=== PATIENT | male | born 1955 | race Caucasian/White ===

== ENCOUNTER 2019-02-09 13:41 | Inpatient (IN) | payer OTHER ==
[~2019-02-09] VITALS: Ht 170.2 cm; Wt 90.7 kg
[2019-02-09 14:16] VITALS: BP 138/85; BMI 31.4
[2019-02-09] MEDS ORDERED: PROTONIX40 MG PO (14:18)
[2019-02-09] MEDS ORDERED: LOMOTIL 2.5-0.1 EAC1 PO (14:19)
[2019-02-09] MEDS ORDERED: TRAZODONE HCL150 MG PO (14:19)
[2019-02-09 14:56] LABS: BASOPHILS 0.2 % (0-2); EOSINOPHILS 1.6 % (0-7); HEMATOCRIT 49.9 % (42.0-54.0); HEMOGLOBIN 16.9 g/dL (13.5-17.5); IMMATURE GRANULOCYTES 0.4 % (0-5); LYMPHOCYTES 10.3 % (15-50); MCHC 33.9 g/dL (31.0-37.0); MCV 94.5 fL (80.0-100.0); MEAN PLATELET VOLUME 9.5 fL (7.4-10.4); MONOCYTES 6.8 % (2-11); NEUTROPHILS 80.7 % (40-80); PLATELET COUNT 278 10x3/uL (130-400); RBC 5.28 10x6/uL (4.20-6.10); RDW 14.8 % (11.5-14.5); WBC 13.9 10x3/uL (4.8-10.8)
[2019-02-09 15:01] LABS: CALCIUM 8.9 mg/dL (8.5-10.1); CARBON DIOXIDE 26.1 mmol/L (21.0-32.0); CREATININE - SERUM 1.2 mg/dL (0.6-1.3); POTASSIUM - SERUM 4.1 mmol/L (3.5-5.1)
[2019-02-09 15:07] LABS: ALBUMIN 3.7 g/dL (3.4-5.0); BILIRUBIN - TOTAL 2.19 mg/dL (0.2-1.3); PROTEIN - SERUM 6.8 g/dL (6.4-8.2)
--- NOTE | 2019-02-09 19:21 | NUR ---
IN BED WITH TV ON, AT BEDSIDE. ABLE TO VOICE ALL NEEDS. REQUESTS SLEEP MEDICATION FOR HS, THIS NURSE REVIEWED MAR AND NOTED HE HAS SCHEDULED HOME MEDS, HE IS SATISFIED. ALSO REQUESTS COFFEE, GRANTED. WILL NOTE ANY CHANGE.
[2019-02-09 22:13] VITALS: BP 119/71
[2019-02-10 01:21] VITALS: BP 93/62
--- NOTE | 2019-02-10 02:23 | NUR ---
I have reviewed this patient and I concur with the Shift Assessment completed by the Licensed Practical Nurse today this shift.
[2019-02-10 05:34] VITALS: BP 110/70
--- NOTE | 2019-02-10 05:57 | NUR ---
RESTED WELL THIS SHIFT. DENIES ANY FURTHER PAIN AT THIS TIME. WAS UNCOMFORTABLE AT 0222 BUT PRN TYLENOL WAS EFFECTIVE. HAS GENERAL DISCOMFORT DUE TO COUGHING AND NOT FEELING WELL, BUT IS VERY WELCOMING TO INTERVENTIONS. HOT BROTH WAS OFFERED AND RECVD WELL FOR THROAT DISCOMFORT. WILL NOTE ANY CHANGE.
[2019-02-10 07:00] LABS: BASOPHILS 0.2 % (0-2); EOSINOPHILS 2.5 % (0-7); HEMATOCRIT 44.1 % (42.0-54.0); HEMOGLOBIN 14.8 g/dL (13.5-17.5); IMMATURE GRANULOCYTES 0.2 % (0-5); LYMPHOCYTES 11.8 % (15-50); MCH 31.8 pg (26.0-34.0); MCHC 33.6 g/dL (31.0-37.0); MCV 94.6 fL (80.0-100.0); MEAN PLATELET VOLUME 9.7 fL (7.4-10.4); MONOCYTES 10.4 % (2-11); NEUTROPHILS 74.9 % (40-80); PLATELET COUNT 297 10x3/uL (130-400); RBC 4.66 10x6/uL (4.20-6.10); RDW 14.8 % (11.5-14.5)
[2019-02-10 07:15] LABS: WBC 10.3 10x3/uL (4.8-10.8)
[2019-02-10 07:23] LABS: ALBUMIN 2.8 g/dL (3.4-5.0); ANION GAP 11.1 mmol/L (8-16); BILIRUBIN - TOTAL 1.45 mg/dL (0.2-1.3); CALCIUM 8.2 mg/dL (8.5-10.1); CARBON DIOXIDE 26.6 mmol/L (21.0-32.0); CREATININE - SERUM 1.3 mg/dL (0.6-1.3); POTASSIUM - SERUM 3.7 mmol/L (3.5-5.1); PROTEIN - SERUM 6.2 g/dL (6.4-8.2)
--- NOTE | 2019-02-10 08:15 | NUR ---
PATIENT LAYING IN BED AWAKE. SAYS "I FEEL WORSE TODAY THEN YESTERDAY." TOLD HIM WE WOULD TRY TO GET HIM FEELING BETTER. SAID HE MIGHT BE COUGHING MORE SINCE HIS ROOM WAS WARM. TURNED DOWN HEAT A "FEW DEGREES" CL IN REACH. WCDAKSHA
[2019-02-10 08:42] VITALS: BP 121/71
[2019-02-10 09:40] VITALS: Ht 170.2 cm; Wt 90.7 kg
[2019-02-10 12:25] VITALS: BP 114/65
--- NOTE | 2019-02-10 15:52 | MORECARE ---
CASE MANAGEMENT DISCHARGE SUMMARY PATIENT: TAMANNA CHIU UNIT: [id number] ADM DATE: 02/09/19 AGE: 63 : 59 SEX: M ROOM/BED: D.2206 AUTHOR: RANJEETDOC PHYSICIAN: REFERRING PHYSICIAN: VAIBHAV LEO DO DATE OF SERVICE: 02/10/19 Discharge Plan Patient Name: TAMANNA CHIU Facility: [facility]:[place] : 1955 Planned Disposition: Home or Self Care Anticipated Discharge Date: Discharge Date: Expected LOS: Initial Reviewer: [email or web address] Initial Review Date: 02/09/2019 Generated: 02/10/19 4:52 pm Comments DCP- Discharge Planning Updated by [email or web address]: Laurence Grande on 02/10/19 2:[address] Patient Name: TAMANNA CHIU Admission Status: Elective Accout number: [id number] Admission Date: 02-09-2019 : 1955 Admission Diagnosis: Attending: VAIBHAV LEO Current LOS: 1 Anticipated DC Date: Planned Disposition: Home or Self Care Primary Insurance: [facility] Discharge Planning Comments: CM met with patient to complete initial dc planning assessment. CM educated patient on the CM role and verbal consent given by patient to complete assessment. Patient lives at home with his where he is independent with his care. At discharge patient plans to return home and feels this is a safe discharge. Either his will drive him home or he will drive himself. His truck is in the parking lot. CM discussed availability of home health, rehab services, and medical equipment. Patient denied known discharge needs at this time. He does have a nebulizer at home that he uses at times. CM will continue to follow and will assist as needed with dc plans/needs. Tetryl Dissolver Operator: Laurence Grande DCPIA - Discharge Planning Initial Assessment Updated by [email or web address]: Laurence Grande on 02/10/19 3:48 pm * Is the patient Alert and Oriented? Yes * How many steps to enter\exit or inside your home? * PCP FELIPA * Pharmacy [facility] * Preadmission Environment Home with Family * ADLs Independent * Equipment Nebulizer * List name and contact numbers for known caregivers / representatives who currently or will assist patient after discharge: DEBORAH () [phone] * Verbal permission to speak to the caregivers and representatives has been obtained from the patient. N/A * Community resources currently utilized None * Additional services required to return to the preadmission environment? No * Can the patient safely return to the preadmission environment? Yes * Has this patient been hospitalized within the prior 30 days at any hospital? Yes Patient Name: TAMANNA CHIU Page [phone] at 1552 All edits/amendments must be made on the electronic document DICTATION DATE: 02/10/191551 PROJECTOR OPERATOR: MELLISSA 02/10/191551 RPT#: [id number] DC DATE: STATUS: ADM IN [facility] [address] [place] [address] END OF REPORT
[2019-02-10 16:58] VITALS: BP 139/82
[2019-02-10 21:26] VITALS: BP 133/77
[2019-02-11 02:26] VITALS: BP 108/57
[2019-02-11 05:51] VITALS: BP 110/60
[2019-02-11 06:53] LABS: BASOPHILS 0.2 % (0-2); EOSINOPHILS 3.7 % (0-7); HEMATOCRIT 42.6 % (42.0-54.0); HEMOGLOBIN 14.2 g/dL (13.5-17.5); IMMATURE GRANULOCYTES 0.6 % (0-5); LYMPHOCYTES 15.7 % (15-50); MCH 31.4 pg (26.0-34.0); MCHC 33.3 g/dL (31.0-37.0); MCV 94.2 fL (80.0-100.0); MEAN PLATELET VOLUME 9.4 fL (7.4-10.4); MONOCYTES 12.4 % (2-11); NEUTROPHILS 67.4 % (40-80); PLATELET COUNT 286 10x3/uL (130-400); RBC 4.52 10x6/uL (4.20-6.10); RDW 14.9 % (11.5-14.5); WBC 8.3 10x3/uL (4.8-10.8)
--- NOTE | 2019-02-11 07:21 | NUR ---
I have reviewed this patient and I concur with the Shift Assessment completed by the Licensed Practical Nurse today this shift.
[2019-02-11 07:36] LABS: ALBUMIN 2.8 g/dL (3.4-5.0); ANION GAP 14.4 mmol/L (8-16); BILIRUBIN - TOTAL 0.86 mg/dL (0.2-1.3); CALCIUM 8.3 mg/dL (8.5-10.1); CARBON DIOXIDE 22.6 mmol/L (21.0-32.0); CREATININE - SERUM 1.2 mg/dL (0.6-1.3); PROTEIN - SERUM 5.7 g/dL (6.4-8.2)
--- NOTE | 2019-02-11 08:00 | NUR ---
REQUESTING COUGH SYRUP AND TYLENOL. CL IN REACH. NO FURTHER NEEDS AT THIS TIME. WCTM
[2019-02-11 08:45] VITALS: BP 131/74
[2019-02-11 12:16] VITALS: BP 128/72
[2019-02-11 16:44] VITALS: BP 138/77
[2019-02-11 19:00] VITALS: BP 140/76
[2019-02-12] VITALS: BP 137/68
--- NOTE | 2019-02-12 01:41 | NUR ---
REC'D IN BED AT WALKING ROUNDS CHGE OF SHIFT.STATES RAN LITTLE FEVER AGAIN TODAY.WITH SOME SOB STILL ON MINIMAL ACTIVITY.NO RESP. DISTRESS OBSERVED. WILL CONTINUE TO MONITOR FOR ANY CHGES.IN STATUS AND FOLLOW CURRENT PLAN OF CARE.
[2019-02-12 05:00] VITALS: BP 107/72
[2019-02-12 05:58] LABS: BASOPHILS 0.4 % (0-2); EOSINOPHILS 4.8 % (0-7); HEMATOCRIT 42.6 % (42.0-54.0); HEMOGLOBIN 14.2 g/dL (13.5-17.5); IMMATURE GRANULOCYTES 0.6 % (0-5); LYMPHOCYTES 15.8 % (15-50); MCH 31.6 pg (26.0-34.0); MCHC 33.3 g/dL (31.0-37.0); MCV 94.9 fL (80.0-100.0); MEAN PLATELET VOLUME 9.3 fL (7.4-10.4); MONOCYTES 14.7 % (2-11); NEUTROPHILS 63.7 % (40-80); PLATELET COUNT 336 10x3/uL (130-400); RBC 4.49 10x6/uL (4.20-6.10); WBC 7.3 10x3/uL (4.8-10.8)
[2019-02-12 06:32] LABS: ALBUMIN 2.7 g/dL (3.4-5.0); ANION GAP 14.1 mmol/L (8-16); BILIRUBIN - TOTAL 1.14 mg/dL (0.2-1.3); CALCIUM 8.5 mg/dL (8.5-10.1); CARBON DIOXIDE 25.5 mmol/L (21.0-32.0); CREATININE - SERUM 1.2 mg/dL (0.6-1.3); POTASSIUM - SERUM 3.6 mmol/L (3.5-5.1); PROTEIN - SERUM 6.3 g/dL (6.4-8.2)
--- NOTE | 2019-02-12 07:35 | NUR ---
I have reviewed this patient and I concur with the Shift Assessment completed by the Licensed Practical Nurse today this shift.
--- NOTE | 2019-02-12 08:04 | NUR ---
AWAKE AND ALERT. ORIENTED X3. C/O SEVERE HEADACHE AT THIS TIME. REQUESTED AND GIVEN 650 MG TYLENOL PO FOR SAME. WILL MONITOR. LUNGS ARE DIMINISHED IN BILATERAL LOWER LOBES, OCCASSIONAL PRODUCTIVE COUGH NOTED. SKIN IS INTACT WITHOUT REDNESS. IV TO LEFT AC PATENT WITHOUT REDNESS AT INSERTION SITE. SCD'S IN PLACE. DENIES FURTHER NEEDS.
[2019-02-12 08:56] VITALS: BP 143/77
--- NOTE | 2019-02-12 09:00 | NUR ---
ATE MOST OF BREAKFAST. REPORTS HEADACHE IMPROVED. DENIES NEEDS.
--- NOTE | 2019-02-12 12:19 | NUR ---
RESTING QUIETLY IN BED. NO C/O HEADACHE. DENIES NEEDS.
[2019-02-12 12:49] VITALS: BP 120/79
--- NOTE | 2019-02-12 14:00 | NUR ---
ATE MOST OF LUNCH. UP TO SHOWER WITH SET UPASSISTANCE. RASH NOTED TO ENTIRE BACK. NO C/O ITCHING OR DISCOMFORT. WILL MONITOR.
[2019-02-12 16:17] LABS: APTT 30.2 SECONDS (22.8-39.4); INR 1.06 (0.85-1.17); PROTIME 13.3 SECONDS (11.6-15.0)
[2019-02-12 16:28] VITALS: BP 135/78
--- NOTE | 2019-02-12 17:10 | NUR ---
REQUESTED AND GIVNE COUGH SYRUP FOR C/O PAIN WITH COUGH. WILL MONITOR.
--- NOTE | 2019-02-12 18:38 | NUR ---
ATE MOST OF SUPPER. DENIES NEEDS. NO CHANGES NOTED.
[2019-02-12 19:00] VITALS: BP 138/73
[2019-02-13] VITALS (7 sets, daily range): BP systolic 115–146; BP diastolic 57–80
[2019-02-13 06:56] LABS: BASOPHILS 0.6 % (0-2); EOSINOPHILS 5.6 % (0-7); HEMATOCRIT 40.6 % (42.0-54.0); HEMOGLOBIN 13.5 g/dL (13.5-17.5); IMMATURE GRANULOCYTES 0.6 % (0-5); LYMPHOCYTES 17.7 % (15-50); MCH 31.5 pg (26.0-34.0); MCHC 33.3 g/dL (31.0-37.0); MCV 94.6 fL (80.0-100.0); MEAN PLATELET VOLUME 9.2 fL (7.4-10.4); MONOCYTES 12.8 % (2-11); NEUTROPHILS 62.7 % (40-80); PLATELET COUNT 340 10x3/uL (130-400); RBC 4.29 10x6/uL (4.20-6.10); WBC 7.1 10x3/uL (4.8-10.8)
[2019-02-13 07:22] LABS: ALBUMIN 2.6 g/dL (3.4-5.0); ANION GAP 10.9 mmol/L (8-16); BILIRUBIN - TOTAL 1.08 mg/dL (0.2-1.3); CALCIUM 8.2 mg/dL (8.5-10.1); CARBON DIOXIDE 26.1 mmol/L (21.0-32.0); CREATININE - SERUM 1.1 mg/dL (0.6-1.3); PROTEIN - SERUM 5.5 g/dL (6.4-8.2)
--- NOTE | 2019-02-13 07:55 | NUR ---
AWAKE AND ALERT. ORIENTED X3. C/O BACK ITCHING, CLEAN WITH DAMP CLOTH AND SPRAY APPLIED TO AREA. ALSO REQUESTED AND GIVEN 650 MG TYLENOL PO FOR C/O HEADACHE LEVEL 10. WILL MONITOR. LUNGS ARE DIMINISHED IN LOWER LOBES, NON PRODUCTIVE COUGH NOTED. SKIN IS INTACT WITHOUT REDNESS EXCEPT RASH TO BACK. WILL CONTINUE TO MONITOR. IV TO RIGHT FOREARM IS PATENT WITHOUT REDNESS AT INSERTION SITE. DENIES NEEDS. SCD'S IN PLACE.
--- NOTE | 2019-02-13 10:40 | NUR ---
GIVEN PRE PROCEDURE MEDS. OFF UNIT VIA BED FOR BRONCH. FAMILY HERE WITH PATIENT.
--- NOTE | 2019-02-13 12:12 | NUR ---
RETURNED FROM [facility]. FAMILY AT [facility]. S.
--- NOTE | 2019-02-13 19:27 | NUR ---
ATE MOST OF SUPPER. DENIES NEEDS. NO CHANGES NOTED.
[2019-02-14] VITALS: BP 134/75
[2019-02-14 04:00] VITALS: BP 131/76
[2019-02-14 07:08] LABS: BASOPHILS 0.6 % (0-2); EOSINOPHILS 6.4 % (0-7); HEMATOCRIT 40.9 % (42.0-54.0); HEMOGLOBIN 13.5 g/dL (13.5-17.5); IMMATURE GRANULOCYTES 0.9 % (0-5); LYMPHOCYTES 17.5 % (15-50); MCH 31.4 pg (26.0-34.0); MCV 95.1 fL (80.0-100.0); MEAN PLATELET VOLUME 9.1 fL (7.4-10.4); MONOCYTES 11.5 % (2-11); NEUTROPHILS 63.1 % (40-80); PLATELET COUNT 339 10x3/uL (130-400); RDW 14.9 % (11.5-14.5); WBC 6.6 10x3/uL (4.8-10.8)
[2019-02-14 07:30] LABS: ALBUMIN 2.6 g/dL (3.4-5.0); ANION GAP 14.1 mmol/L (8-16); BILIRUBIN - TOTAL 0.7 mg/dL (0.2-1.3); CALCIUM 7.9 mg/dL (8.5-10.1); CREATININE - SERUM 1.2 mg/dL (0.6-1.3); POTASSIUM - SERUM 4.1 mmol/L (3.5-5.1); PROTEIN - SERUM 5.6 g/dL (6.4-8.2)
[2019-02-14 08:12] VITALS: BP 135/82
--- NOTE | 2019-02-14 08:25 | NUR ---
PATIENT IN BED AWAKE WATCHING TV. CL IN REACH. NO NEEDS AT THIS TIME. WCTM
--- NOTE | 2019-02-14 10:39 | NUR ---
IN ROOM. ASKED WHAT TIME DOCTORS USUALLY ROUND. PATIENT REQUESTED AND RECEIVED COFFEE. CL IN REACH. WCTM
--- NOTE | 2019-02-14 13:02 | NUR ---
WENT DOWN TO PHARMACY FOR FLONASE. REQUESTS LORTAB WHEN IT IS TIME. CL IN REACH. TM
[2019-02-14 13:33] VITALS: BP 137/73
[2019-02-14 14:08] LABS: ACID FAST SMEAR Negative (()); AFB SPECIMEN PROCESSING Concentration (())
--- NOTE | 2019-02-14 15:55 | NUR ---
PATIENT WALKED FOUR LAPS AROUND NURSING STATION. CL IN REACH. NO NEEDS AT THIS TIME. WCTM
--- NOTE | 2019-02-14 15:56 | NUR ---
IV TUBING CHANGED.
[2019-02-14 16:23] VITALS: BP 123/81
[2019-02-14 19:49] VITALS: BP 137/81
[2019-02-15] VITALS: BP 116/73
--- NOTE | 2019-02-15 00:55 | NUR ---
PATIENT RESTING QUIETLY, IV FLUIDS INFUSING WITHOUT DIFFICULTY, NO RESP. DISTRESS, WILL CONTINUE TO MONITOR, CALL LIGHT WITHIN REACH
[2019-02-15 04:00] VITALS: BP 127/82
[2019-02-15 06:14] LABS: BASOPHILS 0.8 % (0-2); EOSINOPHILS 7.8 % (0-7); HEMATOCRIT 44.1 % (42.0-54.0); HEMOGLOBIN 14.7 g/dL (13.5-17.5); IMMATURE GRANULOCYTES 0.8 % (0-5); LYMPHOCYTES 21.2 % (15-50); MCH 31.7 pg (26.0-34.0); MCHC 33.3 g/dL (31.0-37.0); MONOCYTES 10.4 % (2-11); PLATELET COUNT 369 10x3/uL (130-400); RBC 4.64 10x6/uL (4.20-6.10); RDW 14.8 % (11.5-14.5); WBC 5.3 10x3/uL (4.8-10.8)
[2019-02-15 06:55] LABS: ANION GAP 14.9 mmol/L (8-16); BILIRUBIN - TOTAL 0.67 mg/dL (0.2-1.3); CALCIUM 8.3 mg/dL (8.5-10.1); CARBON DIOXIDE 24.1 mmol/L (21.0-32.0); CREATININE - SERUM 1.3 mg/dL (0.6-1.3); PROTEIN - SERUM 6.2 g/dL (6.4-8.2)
[2019-02-15 08:19] VITALS: BP 120/85
--- NOTE | 2019-02-15 10:18 | NUR ---
PATIENT WALKED 4 LAPS AROUND NURSING STATION. FRESH COFFEE PROVIDED. CL IN REACH. NO FURTHER NEEDS AT THIS TIME. WCTM
[2019-02-15 12:40] VITALS: BP 151/93
[2019-02-15] MEDS ORDERED: LEVAQUIN750 MG PO (13:45)
[2019-02-15] MEDS ORDERED: DOXYCYCLINE HY100 M2 PO (13:45)
[2019-02-15] MEDS ORDERED: MUCINEX DM ER1 EAC1 PO (13:47)
[2019-02-15] MEDS ORDERED: TESSALON PERLE100 MG PO (13:47)
[2019-02-15] MEDS ORDERED: IPRAT-ALBUT 0.5-3 ML UPD (13:47)
[2019-02-15] MEDS ORDERED: Xylocaine-MPF 1% INH (13:48)
--- NOTE | 2019-02-15 14:48 | MORECARE ---
CASE MANAGEMENT DISCHARGE SUMMARY PATIENT: TAMANNA CHIU UNIT: [id number] ADM DATE: 02/09/19 AGE: 63 : 59 SEX: M ROOM/BED: D.2206 AUTHOR: MAYNOR POLLACK PHYSICIAN: REFERRING PHYSICIAN: VAIBHAV LEO DO DATE OF SERVICE: 02/15/19 Discharge Plan Patient Name: TAMANNA CHIU Facility: [facility]:[place] : 1955 Planned Disposition: Home or Self Care Anticipated Discharge Date: Discharge Date: Expected LOS: Initial Reviewer: [email or web address] Initial Review Date: 02/09/2019 Generated: 02/15/19 3:48 pm Comments DCP- Discharge Planning Updated by [email or web address]: Jennifer Gomez on 02/15/19 1:[address] Patient Name: TAMANNA CHIU Encounter No: [id number] : 1955 Primary Insurance: [facility] [employer] [facility] Anticipated DC Date: Planned Disposition: Home or Self Care External Planned Provider: : DCP follow-up note: Patient and family in agreement with discharge plan. No changes to plan. Case management will follow and assist as needed. Jennifer Gomez DCP- Discharge Planning Updated by [email or web address]: Laurence Grande on 02/10/19 3:[address] Patient Name: TAMANNA CHIU Admission Status: Elective Accout number: [id number] Admission Date: 02-09-2019 : 1955 Admission Diagnosis: Attending: VAIBHAV LEO Current LOS: 1 Anticipated DC Date: Planned Disposition: Home or Self Care Primary Insurance: [facility] [employer] [facility] Discharge Planning Comments: CM met with patient to complete initial dc planning assessment. CM educated patient on the CM role and verbal consent given by patient to complete assessment. Patient lives at home with his where he is independent with his care. At discharge patient plans to return home and feels this is a safe discharge. Either his will drive him home or he will drive himself. His truck is in the parking lot. CM discussed availability of home health, rehab services, and medical equipment. Patient denied known discharge needs at this time. He does have a nebulizer at home that he uses at times. CM will continue to follow and will assist as needed with dc plans/needs. Cigar Maker: Laurence Grande DCPIA - Discharge Planning Initial Assessment Updated by [email or web address]: Laurence Grande on 02/10/19 3:48 pm * Is the patient Alert and Oriented? Yes * How many steps to enter\exit or inside your home? * PCP FELIPA * Pharmacy [facility] * Preadmission Environment Home with Family * ADLs Independent * Equipment Nebulizer * List name and contact numbers for known caregivers / representatives who currently or will assist patient after discharge: DEBORAH () [phone] * Verbal permission to speak to the caregivers and representatives has been obtained from the patient. N/A * Community resources currently utilized None * Additional services required to return to the preadmission environment? No * Can the patient safely return to the preadmission environment? Yes * Has this patient been hospitalized within the prior 30 days at any hospital? Yes Last DP export: 02/10/19 3:52 Patient Name: TAMANNA CHIU Page [id number] at 1448 All edits/amendments must be made on the electronic document DICTATION DATE: 02/15/191447 RESEARCH ASSISTANT PROFESSOR: MELLISSA 02/15/198 RPT#: [id number] DC DATE: STATUS: ADM IN [facility] [address] [place] [address] END OF REPORT
--- NOTE | 2019-02-15 15:49 | NUR ---
IV THERAPY DC'ED FROM RIGHT FOREARM WITH TIP INTACT. DISCHARGE INSTRUCTIONS GIVEN. PATIENT VERBALIZED UNDERSTANDING. ASSISTED TO FIND FRONT DOOR.
[2019-02-16 11:09] LABS: FUNGUS STAIN Final report (())
--- NOTE | 2019-02-17 15:33 | MORECARE ---
CASE MANAGEMENT DISCHARGE SUMMARY PATIENT: TAMANNA CHIU UNIT: [id number] ADM DATE: 02/09/19 AGE: 63 : 59 SEX: M ROOM/BED: D.2206 AUTHOR: MAYNOR POLLACK PHYSICIAN: REFERRING PHYSICIAN: VAIBHAV LEO DO DATE OF SERVICE: 02/17/19 Discharge Plan Patient Name: TAMANNA CHIU Facility: [facility]:[place] : 1955 Planned Disposition: Home or Self Care Anticipated Discharge Date: Discharge Date: 02/15/2019 Expected LOS: Initial Reviewer: [email or web address] Initial Review Date: 02/09/2019 Generated: 02/17/19 4:32 pm Comments DCP- Discharge Planning Updated by [email or web address]: Jennifer Gomez on 02/15/19 1:[address] Patient Name: TAMANNA CHIU Encounter No: [id number] : 1955 Primary Insurance: [facility] [employer] Anticipated DC Date: Planned Disposition: Home or Self Care External Planned Provider: : DCP follow-up note: Patient and family in agreement with discharge plan. No changes to plan. Case management will follow and assist as needed. Jennifer Gomez DCP- Discharge Planning Updated by [email or web address]: Laurence Grande on 02/10/19 3:[address] Patient Name: TAMANNA CHIU Admission Status: Elective Accout number: [id number] Admission Date: 02-09-2019 : 1955 Admission Diagnosis: Attending: VAIBHAV LEO Current LOS: 1 Anticipated DC Date: Planned Disposition: Home or Self Care Primary Insurance: [facility] T[employer] [facility] Discharge Planning Comments: CM met with patient to complete initial dc planning assessment. CM educated patient on the CM role and verbal consent given by patient to complete assessment. Patient lives at home with his where he is independent with his care. At discharge patient plans to return home and feels this is a safe discharge. Either his will drive him home or he will drive himself. His truck is in the parking lot. CM discussed availability of home health, rehab services, and medical equipment. Patient denied known discharge needs at this time. He does have a nebulizer at home that he uses at times. CM will continue to follow and will assist as needed with dc plans/needs. Pre School Teacher: Laurence Grande DCPIA - Discharge Planning Initial Assessment Updated by [email or web address]: Laurence Grande on 02/10/19 3:48 pm * Is the patient Alert and Oriented? Yes * How many steps to enter\exit or inside your home? * PCP FELIPA * Pharmacy [facility] * Preadmission Environment Home with Family * ADLs Independent * Equipment Nebulizer * List name and contact numbers for known caregivers / representatives who currently or will assist patient after discharge: DEBORAH () [phone] * Verbal permission to speak to the caregivers and representatives has been obtained from the patient. N/A * Community resources currently utilized None * Additional services required to return to the preadmission environment? No * Can the patient safely return to the preadmission environment? Yes * Has this patient been hospitalized within the prior 30 days at any hospital? Yes Last DP export: 02/15/19 1:48 p Patient Name: TAMANNA CHIU Page [id number] at 1533 All edits/amendments must be made on the electronic document DICTATION DATE: 02/17/191531 MANAGER PIPELINE: MELLISSA 02/17/191531 RPT#: [id number] DC DATE:02/15/19 STATUS: DIS IN [facility] [address] [place] [address] END OF REPORT
[2019-02-21 07:18] LABS: FUNGUS CULTURE RESULT 1 Candida albicans (())
[2019-03-17 09:09] LABS: FUNGUS MYCOLOGY CULTURE Final report (())
== END 2019-02-15 15:50 | disposition home or self-care (01) | DRG 193 ==
LOC: D.MS 13:41
PROVIDERS: Internal Medicine Pulmonary Disease; ADMIT Family Medicine; ATTEND Family Medicine
PROC: 0B948ZX Drainage of Right Upper Lobe Bronchus, Via Natural or Artificial Opening Endoscopic, Diagnostic (ICD-10-PCS; principal; 2019-02-13 11:00)
DX: J18.1 Lobar pneumonia, unspecified organism (principal); J96.01 Acute respiratory failure with hypoxia; R19.7 Diarrhea, unspecified; E86.0 Dehydration; I10 Essential (primary) hypertension; K21.9 Gastro-esophageal reflux disease without esophagitis; R35.1 Nocturia; F41.9 Anxiety disorder, unspecified; E03.9 Hypothyroidism, unspecified; G47.33 Obstructive sleep apnea (adult) (pediatric); J44.9 Chronic obstructive pulmonary disease, unspecified; J30.9 Allergic rhinitis, unspecified

== ENCOUNTER → 2019-05-05 10:41 | Outpatient (CLI) | payer OTHER ==
[2019-02-10 09:40] VITALS: BMI 31.3
[~2019-05-05 10:41] MED LIST: DOXYCYCLINE HY100 M2 PO; IPRAT-ALBUT 0.5-3 ML UPD; LEVAQUIN750 MG PO; LOMOTIL 2.5-0.1 EAC1 PO; MUCINEX DM ER1 EAC1 PO; PROTONIX40 MG PO; TESSALON PERLE100 MG PO; TRAZODONE HCL150 MG PO; Xylocaine-MPF 1% INH
[2019-05-05 12:30] LABS: BASOPHILS 0.4 % (0-2); EOSINOPHILS 1.6 % (0-7); HEMATOCRIT 54.4 % (42.0-54.0); HEMOGLOBIN 18.6 g/dL (13.5-17.5); IMMATURE GRANULOCYTES 0.2 % (0-5); MCH 31.7 pg (26.0-34.0); MCHC 34.2 g/dL (31.0-37.0); MCV 92.7 fL (80.0-100.0); MEAN PLATELET VOLUME 9.1 fL (7.4-10.4); MONOCYTES 7.7 % (2-11); NEUTROPHILS 67.1 % (40-80); PLATELET COUNT 368 10x3/uL (130-400); RBC 5.87 10x6/uL (4.20-6.10); WBC 8.4 10x3/uL (4.8-10.8)
== END | disposition home or self-care (01) ==
LOC: D.RT 10:41
PROVIDERS: ATTEND Internal Medicine Pulmonary Disease
DX: J45.909 Unspecified asthma, uncomplicated (principal)

== ENCOUNTER → 2019-08-19 08:23 | Outpatient (CLI) | payer OTHER ==
[2019-02-10 09:40] VITALS: BMI 31.3
== END | disposition home or self-care (01) ==
LOC: D.LAB 08:23
PROVIDERS: ATTEND Internal Medicine Pulmonary Disease
DX: J45.909 Unspecified asthma, uncomplicated (principal); G47.33 Obstructive sleep apnea (adult) (pediatric); Z87.01 Personal history of pneumonia (recurrent)

== ENCOUNTER → 2019-12-23 21:29 | Outpatient (CLI) | payer OTHER ==
[2019-02-10 09:40] VITALS: BMI 31.3
[2019-12-23 22:36] LABS: BASOPHILS 0.3 % (0-2); EOSINOPHILS 1.4 % (0-7); HEMATOCRIT 54.3 % (42.0-54.0); HEMOGLOBIN 18.1 g/dL (13.5-17.5); IMMATURE GRANULOCYTES 0.2 % (0-5); LYMPHOCYTES 19.1 % (15-50); MCH 31.3 pg (26.0-34.0); MCHC 33.3 g/dL (31.0-37.0); MCV 93.8 fL (80.0-100.0); MEAN PLATELET VOLUME 9.7 fL (7.4-10.4); MONOCYTES 8.9 % (2-11); NEUTROPHILS 70.1 % (40-80); RBC 5.79 10x6/uL (4.20-6.10); RDW 14.4 % (11.5-14.5); WBC 8.8 10x3/uL (4.8-10.8)
[2019-12-23 22:48] LABS: PLATELET COUNT 294 10x3/uL (130-400)
== END | disposition home or self-care (01) ==
LOC: D.LABREF 21:29
PROVIDERS: ATTEND Internal Medicine Pulmonary Disease
DX: Z87.01 Personal history of pneumonia (recurrent) (principal)

== ENCOUNTER → 2020-06-09 18:05 | Outpatient (CLI) | payer OTHER ==
[2020-02-17 07:10] VITALS: BMI 32.5
[~2020-06-09 18:05] MED LIST changes: +SINGULAIR10 MG PO
== END | disposition home or self-care (01) ==
LOC: D.LABREF 18:05
PROVIDERS: ATTEND Internal Medicine Pulmonary Disease
DX: G47.33 Obstructive sleep apnea (adult) (pediatric) (principal)